=== PATIENT | female | born 1995 | race Caucasian/White ===

== ENCOUNTER 2017-12-11 10:25 | Emergency (ER) | payer SELFPAY, OTHER | END 2017-12-11 12:12 | disposition home or self-care (01) | LOC: ERS 10:25 | DX: O03.9 Complete or unspecified spontaneous abortion without complication (principal); F32.9 Major depressive disorder, single episode, unspecified; Z87.891 Personal history of nicotine dependence | CPT/HCPCS: 36415; 84702; 99284 ==

== ENCOUNTER 2018-02-07 09:26 | Emergency (ER) | payer OTHER ==
[2018-02-07 10:20] LABS: #Basophils 0.1 thou/uL (0.0-0.2); #Eosinphils 0.3 thou/uL (0.0-0.7); #Lymphocytes 2.2 thou/uL (1.20-3.40); #Monocytes 0.4 thou/uL (0.11-0.59); #Neutrophils 3.6 thou/uL (1.40-6.50); %Basophils 1.2 % (0.0-1.0); %Eosinophils 4.5 % (0.0-10.0); %Lymphocytes 33.8 % (21.0-51.0); %Monocytes 5.7 % (0.0-10.0); %Neutrophils 54.8 % (42.0-75.0); Hemoglobin 14.4 g/dL (12.0-16.0); Mean Corpuscular HGB CONC 33.7 g/dL (32.0-36.0); Mean Corpuscular Hemoglobin 30.3 pg (27.0-31.0); Mean Platelet Volume 8.6 fL (7.4-10.4); Platelet Count 202 thou/uL (130-400); RBC Distribution Width 11.8 % (11.5-14.5); Red Blood Cell (RBC) Count 4.74 mill/uL (4.20-5.40); White Blood Cell (WBC) Count 6.5 thou/uL (4.8-10.8)
[2018-02-07 10:23] LABS: BHCG - Serum POSITIVE (NEGATIVE); Pregs Control Background? CLEAR/WHITE (CLR/WHITE); Pregs Control Bar Appear? YES (CONTROL BAR)
[2018-02-07 10:47] LABS: Bilirubin Negative (Negative); Blood, Urine Negative (Negative); Clarity CLEAR (Clear); Glucose, Urine (Dipstick) Negative (Negative); Leukocyte Negative (Negative); Nitrite Negative (Negative); Protein, Urine (Dipstick) Negative (Neg-Trace); Specific Gravity, Urine 1.019 (1.002-1.036); Urobilinogen 0.2 mg/dL (0.2-1.0); pH, Urine 5.5 (5.0-9.0)
--- NOTE | 2018-02-07 11:20 | ULT ---
ULTRASOUND PELVIC TRANSVAGINAL: Date: 02/07/18 HISTORY: Pelvic pain. COMPARISON: None. FINDINGS: Uterus measures 7.9 x 4.1 x 3.9 cm. Right ovary measures 2.6 x 3.5 x 2.3 cm. Left ovary measures 2.3 x 1.4 x 1.8 cm. Adequate flow to both ovaries. There is small volume free fluid. IMPRESSION: 1. Small volume free fluid in the pelvis. 2. No intrauterine gestational sac is seen. If patient is truly , this would be a of unknown location. Follow-up HCG trend and ultrasound recommended. POS: [facility]
[2018-02-08 22:48] LABS: Chlamydia by PCR Not Detected (NotDetected); GC by PCR Not Detected (NotDetected)
== END 2018-02-07 11:35 | disposition home or self-care (01) ==
LOC: ERS 09:26
DX: O20.0 Threatened abortion (principal); O99.341 Other mental disorders complicating pregnancy, first trimester; F32.9 Major depressive disorder, single episode, unspecified; O99.331 Smoking (tobacco) complicating pregnancy, first trimester; F17.210 Nicotine dependence, cigarettes, uncomplicated; Z71.6 Tobacco abuse counseling; Z3A.01 Less than 8 weeks gestation of pregnancy
CPT/HCPCS: 36415; 76856; 81003; 84702; 84703; 85025; 86900; 86901; 87480; 87491; 87510; 87591; 87660; 99406

== ENCOUNTER 2018-02-09 12:59 | Emergency (ER) | payer OTHER ==
--- NOTE | 2018-02-09 14:38 | ULT ---
PELVIC ULTRASOUND: History: Positive HCG. Comparison: 02-07-18. No IUP seen at that time. Technique: Transabdominal and endovaginal imaging of the pelvis is performed. Ovaries are integrated with grayscale, color flow, doppler imaging and spectral waveform analysis. FINDINGS: Uterus is identified, measuring 7.8 x 3.5 x 4.3 cm. Endometrium measures 1.1 cm. No evidence of a ges tational sac, yolk sac, or pole. Left ovary has a normal echotexture measuring 1.9 x 1.5 x 2.2 cm. In the right ovary, there is a 1.9 x 1.3 x 1.1 cm hypoechoic focus which may represent a complex cyst /corpus luteal cyst. Overall, the right ovary measures 2.1 x 2.6 x 3.1 cm. There is free fluid in the cul-de-sac. OVARIAN DOPPLER: Vascular flow to the left and right ovary. IMPRESSION: 1. No sonographic evidence of intrauterine gestation. 2. Hypoechoic focus in the right ovary likely representing a complex cyst versus corpus luteal cyst. 3. Follow up ultrasound and serial HCGs are recommended. POS: [facility]
== END 2018-02-09 14:39 | disposition home or self-care (01) ==
LOC: ERS 12:59
DX: N93.9 Abnormal uterine and vaginal bleeding, unspecified (principal); F32.9 Major depressive disorder, single episode, unspecified; F17.210 Nicotine dependence, cigarettes, uncomplicated
CPT/HCPCS: 36415; 76856; 84702

== ENCOUNTER 2018-02-12 10:14 | Emergency (ER) | payer OTHER ==
--- NOTE | 2018-02-12 16:24 | ULT ---
PELVIC ULTRASOUND INCLUDING TRANSABDOMINAL AND TRANSVAGINAL AND VASCULAR DUPLEX WITH COLOR AND SPECTR AL DOPPLER IMAGIN02/12/18 The uterus measures 6.8 x 3.9 x 4.2 cm. The right ovary measures 2.1 x 2.7 x 3.0 cm. Left ovary measu res 1.6 x 2.0 x 3.2 cm. There is a small gestational sac noted within the uterus which by size crite apollo approximates 5 weeks, 4 days. No evidence of a pole or heart rate. Vascular duplex demonstrates blood flow to both ovaries. No evidence of ovarian torsion. There appear s to be some slight asymmetry in the myometrium on the right side on transverse images. This may just be related to some slight obliquity to this image. The possibility of a small fibroid is a possibili ty as well. IMPRESSION: Small gestational sac within the uterus without evidence of pole or viability. Somewhat a symmetric right sided myometrium on transverse imaging, of uncertain etiology or significance. Follow up quantitative serum HCGs is recommended to evaluate for continued status of this presumed early pre gnancy. POS: [facility]
== END 2018-02-12 14:49 | disposition home or self-care (01) ==
LOC: ERS 10:14
DX: O02.81 Inappropriate change in quantitative human chorionic gonadotropin (hCG) in early pregnancy (principal); J45.909 Unspecified asthma, uncomplicated; F32.9 Major depressive disorder, single episode, unspecified; F17.210 Nicotine dependence, cigarettes, uncomplicated; Z79.899 Other long term (current) drug therapy
CPT/HCPCS: 36415; 76856; 84702

== ENCOUNTER 2018-07-04 10:42 | Outpatient (CLI) | payer OTHER ==
--- NOTE | 2018-07-04 13:01 | ULT ---
RIGHT UPPER QUADRANT ULTRASOUND: History: Abnormal liver function enzymes. FINDINGS: There is no focal hepatic lesion. The gallbladder is unremarkable. Monge sign reported as negative. Common duct is normal in diameter at 4 mm. No ascites. IMPRESSION: No acute gallbladder pathology evident. POS: [facility]
== END 2018-07-04 10:43 | disposition home or self-care (01) ==
LOC: SCSULT 10:42
PROVIDERS: ATTEND Obstetrics & Gynecology
DX: R94.5 Abnormal results of liver function studies (principal)
CPT/HCPCS: 76705; 80053; 85025; 86709; 86803; 87340

== ENCOUNTER 2018-09-14 10:00 | Inpatient (IN) | payer OTHER ==
--- NOTE | 2018-09-13 15:07 | PDOC.LDHP ---
Labor and Delivery H&P Chief complaint: scheduled section HPI: 22 yo @ 36w1d by 7 week CRL who presents for scheduled RCD due to h/o CD x1 (32 weeks for pre-eclampsia), cholestasis of , IUGR with elevated S/ D dopplers. S/P BMTZ course (initial and repeat course). Pt has been followed by MFM due to risk factors mentioned. Current gestational age (weeks): 36 Due date: 10/11/18 Dating criteria: first trimester ultrasound Grav: 3 Para: 1 OB History Details: CD @ 32 weeks for severe pre-eclampsia SAB x1 Current complications: IUGR, other (ICP Abnormal umbilical dopplers) Abnormal US findings: No Past Medical History: H/O tobacco use in early Asthma with tobacco use only Current medications: pre- vitamins, other (Ursodiol) Previous surgical history: low tranverse CS, other (Tonsillectomy) Allergies/Adverse Reactions: Allergies Allergy/AdvReac Type Severity Reaction Status Date / Time Sulfa (Sulfonamide Allergy Rash Verified 09/14/18 11:30 Antibiotics) Social history: none - Physical Exam Vital signs reviewed and normal: yes General: NAD Heart: RRR Lungs: nonlabored breathing Abdomen: gravid Extremeties: no edema FHT: category 2 (120s, mod asael, +accels, rare variable decel) [place] contractions every: no ctx - OB Labs Blood type: O RH: positive Antibody Screen: negative HIV: negative RPR: negative HEPSAg: negative 1 hour GCT: positive 3 hour GTT: normal GBS: negative Urine drug screen: not done Rubella: non-immune Additional Labs: Anti-phospholipid antibody work up negative SS wnl - Assessment 36w1d IUP ICP IUGR with elevated S/D ratio H/O LTCS x1, Declines TOLAC Rubella non-immune - Plan Plan: to OR for section, informed consent obtained -: Reviewed R/B/A/I for TOLAC vs RCD and pt prefers RCD. TO OR as scheduled. Neonatology aware of delivery, s/p BMTZ course. MMR PP.
[2018-09-14] MEDS ORDERED: Promethazine HCl 25 MG/ML VIAL IM PRN ×2 (11:04→12:52)
[2018-09-14] MEDS ORDERED: CEFAZOLIN/Water 2 GM/20 ML SYRINGE SLOW IVP SCH (11:04)
[2018-09-14] MEDS ORDERED: Bicitra 30 ML UDCUP PO SCH (11:04)
[2018-09-14] MEDS ORDERED: Acetaminophen 500 MG TAB PO PRN (11:04)
[2018-09-14] MEDS ORDERED: Ondansetron HCl/PF 4 MG/2 ML Vial IVP PRN ×3 (11:04→12:52)
[2018-09-14] MEDS ORDERED: Butorphanol Tartrate 1 MG/ML VIAL SLOW IVP PRN (11:04)
[2018-09-14] MEDS ORDERED: Bicitra 30 ML UDCUP ONE (11:25)
[2018-09-14] MEDS ORDERED: CEFAZOLIN/Water 2 GM/20 ML SYRINGE ONE (11:25)
[2018-09-14] MEDS: Lactated Ringer's 1,000 ML IV SCH ×2 (11:30→17:48)
[2018-09-14 11:31] VITALS: BMI 37.5
[2018-09-14 11:39] LABS: Hemoglobin 11.4 g/dL (12.0-16.0); Mean Corpuscular HGB CONC 33.2 g/dL (32.0-36.0); Mean Corpuscular Hemoglobin 27.3 pg (27.0-31.0); Mean Corpuscular Volume 82.3 fL (78.0-98.0); Mean Platelet Volume 10.8 fL (7.4-10.4); Platelet Count 196 thou/uL (130-400); Red Blood Cell (RBC) Count 4.16 mill/uL (4.20-5.40); White Blood Cell (WBC) Count 12.1 thou/uL (4.8-10.8)
[2018-09-14 12:04] LABS: ALT (SGPT) 321 U/L (8-55); AST (SGOT) 100 U/L (5-34); Albumin 3.5 g/dL (3.5-5.0); Alkaline Phosphatase 159 U/L (40-150); Anion Gap 14 mmol/L (10-20); BUN (Urea Nitrogen) 10 mg/dL (7.0-18.7); Bilirubin, Total 0.8 mg/dL (0.2-1.2); Calc. Creatinine Clearance 170 mL/min (70-130); Calcium 9.1 mg/dL (7.8-10.44); Carbon Dioxide 21 mmol/L (22-29); Chloride 105 mmol/L (98-107); Estimated GFR-MDRD Greater than 90; Globulin 2.9 g/dL (2.4-3.5); Glucose 96 mg/dL (70-105); Potassium 4.5 mmol/L (3.5-5.1); Protein, Total 6.4 g/dL (6.0-8.3); Sodium 135 mmol/L (136-145)
[2018-09-14] MEDS ORDERED: Lidocaine 1% PF 5 ML VIAL ONE (12:13)
[2018-09-14] MEDS ORDERED: PHENYLEPHRINE-NS 100 MCG/ML 10 ML SYRINGE ONE ×2 (12:13→14:33)
[2018-09-14] MEDS ORDERED: Oxytocin 10 UNITS/ML VIAL ONE ×2 (12:13→12:47)
[2018-09-14] MEDS ORDERED: Morphine PF 1 MG/ML SYR ONE (12:13)
[2018-09-14] MEDS ORDERED: Ondansetron HCl/PF 4 MG/2 ML Vial ONE ×2 (12:13→14:33)
[2018-09-14] MEDS ORDERED: Bupivacaine 0.75% W/DEXTROSE 8.25% 2 ML AMP ONE (12:13)
[2018-09-14] MEDS ORDERED: Lactated Ringer's 1,000 ML IV SCH (12:15)
[2018-09-14 12:23] LABS: HBSAg Index 0.22 S/CO (0-0.99); HIV (1/2) Antibody/Antigen Non-Reactive (NonReactive); HIV 1/2 INDEX 0.12 S/CO (<1.00); Hep B Surf Ag Non-Reactive S/CO (NonReactive); Syphilis Antibody Nonreactive (Nonreactive); Syphilis Antibody Index 0.02 S/CO (<1.00 Non-Reactive)
[2018-09-14] MEDS ORDERED: Ketorolac Tromethamine 30 MG/ML VIAL ONE ×2 (12:50→14:33)
[2018-09-14] MEDS ORDERED: Meperidine HCl/PF 25 MG/ML VIAL SLOW IVP PRN (12:52)
[2018-09-14] MEDS ORDERED: Naloxone HCl 0.4 mg/ml Vial IV PRN (12:52)
[2018-09-14] MEDS ORDERED: diphenhydrAMINE 50 MG/ML VIAL IVP PRN (12:52)
[2018-09-14] MEDS ORDERED: Eucerin (Mineral Oil/Petrolatum,White) 30 gm Jar TOP PRN (12:52)
[2018-09-14] MEDS ORDERED: L&D-Morphine 4 MG/ML VIAL SLOW IVP PRN (12:52)
[2018-09-14] MEDS ORDERED: Promethazine HCl 25 MG SUPP PR PRN (12:52)
[2018-09-14] MEDS ORDERED: Ketorolac Tromethamine 30 MG/ML VIAL IVP PRN (12:52)
[2018-09-14] MEDS ORDERED: Naloxone HCl 0.4 mg/ml Vial IVP PRN ×2 (12:52)
[2018-09-14] MEDS ORDERED: HYDROmorphone 2 MG/ML VIAL SLOW IVP PRN (12:52)
[2018-09-14] MEDS ORDERED: Fentanyl 100 MCG/2 ML VIAL ONE (12:54)
[2018-09-14 12:57] LABS: Actual Bicarbonate (HCO3a) 28.4 mEq/L (22-28); Base Excess (BEa) 1.3 mEq/L (-2.0 to +3.0)
[2018-09-14] MEDS ORDERED: Communication Order-Pharmacy FS SCH (13:00)
--- NOTE | 2018-09-14 13:28 | PDOC.OPDEL ---
OB Operative/Delivery Note Delivery Dr/Surgeon: Corinne Niño DO Pre-Delivery Diagnosis: scheduled section (36 week IUP, FGR, Abnormal umbilical artery dopplers, Intrahepatic Cholestasis of ) Weeks gestation: 36 Anesthesia: spinal - Findings A Sex: female - 1 min: 8 - 5 min: 9 - Additional Findings/Plan Placenta delivered: spontaneous findings: low transverse hysterotomy without extension, normal uterus, normal tubes, normal ovaries Estimated blood loss: QBL 245 cc Compilations/Other Findings: Cephalic in presentation, FGR fetus. Clear amniotic fluid Normal appearing placenta and umbilical cord Post delivery plan: routine recovery
[2018-09-14 14:41] LABS: Amphetamine Not Detected (NotDetected); Barbiturates Screen Not Detected (NotDetected); Benzodiazepine Screen Not Detected (NotDetected); Cocaine Metabolite Screen Not Detected (NotDetected); Medtox Control Line Valid? VALID (VALID); Medtox Reader # READER 1; Methadone Not Detected (NotDetected); Methamphetamine Not Detected (NotDetected); Opiate Screen Detected (NotDetected); Oxycodone Screen Not Detected (NotDetected); Phencyclidine (PCP) Not Detected (NotDetected); THC/Cannabinoid Screen Not Detected (NotDetected); Tricyclic Screen Not Detected (NotDetected)
[2018-09-14] MEDS ORDERED: NS / Oxytocin 40 units/1000ml 1,000 ML IV SCH (16:34)
[2018-09-14] MEDS ORDERED: Misoprostol 200 MCG TAB PR PRN (16:34)
[2018-09-14] MEDS ORDERED: Methylergonovine 0.2 MG/ML VIAL IM PRN (16:34)
[2018-09-14] MEDS ORDERED: Lanolin Ointment 7 GM TUBE TOP PRN (16:34)
[2018-09-14] MEDS ORDERED: Bisacodyl 10 MG SUPP PR PRN (16:34)
[2018-09-14] MEDS ORDERED: Simethicone Chewable 80 MG TAB PO PRN (16:34)
[2018-09-14] MEDS ORDERED: Measles/Mumps/Rubella 10 MCG/0.5 ML VIAL SC ONE (16:34)
--- NOTE | 2018-09-14 23:51 | OP ---
PREOPERATIVE DIAGNOSES: 1. A 36-week 1-day intrauterine . 2. Intrahepatic cholestasis of . 3. growth restriction with abnormal umbilical Dopplers. 4. History of a delivery x1, declines trial of labor. POSTOPERATIVE DIAGNOSES: 1. A 36-week 1-day intrauterine . 2. Intrahepatic cholestasis of . 3. growth restriction with abnormal umbilical Dopplers. 4. History of a delivery x1, declines trial of labor. PROCEDURE: Repeat low transverse delivery via Pfannenstiel skin incision. SURGEON: Corinne Niño D.O. FIELD EXAMINER: Barrett Melton M.D. COMPLICATIONS: None. QBL: 245 mL ANESTHESIA: General. FINDINGS: A viable female in cephalic presentation weighing 4 pounds an 13 ounces with Apgars 8 and 9, clear amniotic fluid. Normal appearing placenta. INDICATIONS FOR THE PROCEDURE: Ms. Hyde is a 22-year-old G3, P1 at 36 weeks and 1 day who presented for repeat . Antepartum course complicated by intrahepatic cholestasis of , growth restriction with abnormal Dopplers and a history of a low transverse delivery x1. Patient was evaluated by Maternal Medicine, who recommended delivery at approximately 36 weeks due to the growth restriction with abnormal Dopplers and cholestasis of . She received a betamethasone course for lung maturity and the patient was counseled regarding mode of delivery and desired a repeat delivery, declining trial of labor. PROCEDURE IN DETAIL: The patient was brought to the operating room. She was placed under spinal anesthesia. The patient was then placed in supine position with a leftward tilt. A Small catheter was placed. She was given Ancef for surgical prophylaxis. She was prepped and draped in a sterile fashion. An official timeout was performed. Anesthesia was assessed and proved to be adequate. Pfannenstiel skin incision was made through the previous scar tissue. This was carried down to the underlying fascial layer. The fascia was then incised in the midline and was extended bilaterally using Brennan scissors. The superior aspect of the fascial incision was grasped using a Yonatan clamp, tented upward, dissected free from the underlying rectus abdominis muscles and the same was performed to the inferior aspect of the fascial incision. The rectus abdominis muscles were bluntly. The peritoneum was entered bluntly and this was extended using blunt dissection. Danny O retractor was placed into the abdomen. A low transverse hysterotomy was made using the scalpel, this was extended using blunt dissection. The amniotic membranes were ruptured and clear amniotic fluid. There was a lower uterine segment that was noted. was delivered in cephalic presentation without difficulty. Infant's cord was clamped and cut. was handed to the waiting Neonatology team. Cord sample, cord gases, and cord blood were obtained. The placenta was delivered spontaneously intact. The uterus was cleared of all clot and debris. Hysterotomy was closed in a running locking fashion creating hemostasis. The ovaries and fallopian tubes were evaluated normal in appearance. The pelvis was irrigated and cleared of all clot and debris. There was slight oozing at the left apex of the hysterotomy, which was then corrected using a [id number] suture. The Danny O retractor was removed from the abdomen. The peritoneum was closed in a running fashion. The rectus abdominis muscles were evaluated hemostatic with use of the Bovie. The fascia was closed in a running fashion using 0 PDS. Subcutaneous layer was copiously irrigated, hemostatic using the Bovie. The subcutaneous layer was closed using 3-0 Vicryl. The skin was closed using 4-0 Monocryl and Dermabond. Today, patient tolerated the procedure well. There were no complications. The mother was transferred to the routine recovery and infant will be transferred to NICU due to slight respiratory distress after delivery due to prematurity. All counts are correct x3. MTDD
[2018-09-15] MEDS ORDERED: Butorphanol Tartrate 1 MG/ML VIAL SLOW IVP PRN (01:00)
[2018-09-15] MEDS: Docusate Calcium (SURFAK) 240 MG CAP PO SCH ×3 (01:59→22:09)
[2018-09-15 05:13] LABS: #Basophils 0.1 thou/uL (0.0-0.2); #Eosinphils 0.1 thou/uL (0.0-0.7); #Lymphocytes 2.5 thou/uL (1.20-3.40); #Monocytes 0.7 thou/uL (0.11-0.59); #Neutrophils 5.7 thou/uL (1.40-6.50); %Basophils 0.8 % (0.0-1.0); %Eosinophils 0.9 % (0.0-10.0); %Neutrophils 63.3 % (42.0-75.0); Hemoglobin 10.7 g/dL (12.0-16.0); Mean Corpuscular Hemoglobin 27.5 pg (27.0-31.0); Mean Corpuscular Volume 83.4 fL (78.0-98.0); Mean Platelet Volume 10.4 fL (7.4-10.4); Platelet Count 175 thou/uL (130-400); RBC Distribution Width 12.2 % (11.5-14.5); Red Blood Cell (RBC) Count 3.91 mill/uL (4.20-5.40); White Blood Cell (WBC) Count 9.1 thou/uL (4.8-10.8)
[2018-09-15] MEDS: Lactated Ringer's 1,000 ML IV SCH ×3 (07:00→22:09)
--- NOTE | 2018-09-15 08:23 | PDOC.PP ---
Post Progress Note Post Day #: 1 Subjective: Overall doing well. Mild pain. Minimal lochia. Has not voided or passed flatus. No n/v, f/c. in NICU for RDS due to prematurity. Formula feeding. PO intake tolerated: yes Flatus: no Ambulation: yes Vital Signs (12 hours) Temp Pulse Resp BP Pulse Ox 09/15/18 04:45 97.8 F 80 20 118/63 09/15/18 02:07 98.0 F 90 20 118/69 09/14/18 21:07 98.0 F 85 18 110/71 99 Weight Weight 186 lb - Physical Examination General: NAD Cardiovascular: RRR Respiratory: non-labored breathing Abdominal: no distention, appropriately TTP Fundus firm & at: below umbilicus Extremities: negative homans (B) Deviation from normal: Dressing c/d/i Neurological: no gross focal deficits Psychiatric: A&Ox3 Result Diagrams: 09/15/18 04:45 09/14/18 11:11 Additional Labs: Post Labs Blood Type A POSITIVE 09/14/18 11:11 Hep Bs Antigen Non-Reactive S/CO (NonReactive) 09/14/18 11:11 (1) delivery delivered Code(s): O82 - ENCOUNTER FOR DELIVERY WITHOUT INDICATION Status: Acute (2) Anemia Code(s): D64.9 - ANEMIA, UNSPECIFIED Status: Acute Qualifiers: Other causes of anemia: acute posthemorrhagic (3) 36 weeks gestation of Code(s): Z3A.36 - 36 WEEKS GESTATION OF Status: Resolved (4) FGR (foetal growth retardation) Status: Resolved (5) Cholestasis during Code(s): O26.619 - LIVER AND BILIARY TRACT DISORD IN , UNSP TRIMESTER; K83.1 - OBSTRUCTION OF BILE DUCT Status: Resolved - Assessment/Plan PPD1 VSSAF Continue post op/ care. Repeat CMP tomorrow. Avoid meds which worsen transaminitis.
[2018-09-15] MEDS: Prenatal Vitamin 1 TAB PO SCH (10:26)
[2018-09-15] MEDS: Ibuprofen 800 MG TAB PO SCH ×2 (13:57→22:09)
[2018-09-15] MEDS: oxyCODONE 5 MG TAB PO PRN ×2 (17:06→23:49)
[2018-09-16] MEDS: Lactated Ringer's 1,000 ML IV SCH ×3 (05:28→16:46)
[2018-09-16] MEDS: Ibuprofen 800 MG TAB PO SCH ×3 (05:28→23:16)
[2018-09-16 05:51] LABS: ALT (SGPT) 291 U/L (8-55); AST (SGOT) 99 U/L (5-34); Alkaline Phosphatase 132 U/L (40-150); Anion Gap 13 mmol/L (10-20); BUN (Urea Nitrogen) 12 mg/dL (7.0-18.7); Bilirubin, Total 0.5 mg/dL (0.2-1.2); Calc. Creatinine Clearance 175 mL/min (70-130); Carbon Dioxide 23 mmol/L (22-29); Chloride 107 mmol/L (98-107); Estimated GFR-MDRD Greater than 90; Globulin 2.5 g/dL (2.4-3.5); Glucose 102 mg/dL (70-105); Potassium 4.1 mmol/L (3.5-5.1); Protein, Total 5.5 g/dL (6.0-8.3); Sodium 139 mmol/L (136-145)
[2018-09-16] MEDS: Prenatal Vitamin 1 TAB PO SCH (07:57)
[2018-09-16] MEDS: Docusate Calcium (SURFAK) 240 MG CAP PO SCH ×2 (07:57→20:26)
--- NOTE | 2018-09-16 08:20 | PDOC.PP ---
Post Progress Note Post Day #: 2 Subjective: Moderate pain. Improved with PO meds. Minimal lochia. Formula feeding. still in NICU. PO intake tolerated: yes Flatus: yes Ambulation: yes Vital Signs (12 hours) Temp Pulse Resp BP Pulse Ox 09/16/18 08:01 97 09/16/18 07:53 98.2 F 95 18 111/61 97 09/15/18 20:50 97.5 F L 84 18 121/73 96 Weight Weight 186 lb - Physical Examination General: NAD Cardiovascular: RRR Respiratory: non-labored breathing Abdominal: no distention, appropriately TTP Fundus firm & at: below umbilicus Extremities: negative homans (B) Skin: CS incision dry & intact, no rash Neurological: no gross focal deficits Psychiatric: A&Ox3, normal affect Result Diagrams: 09/15/18 04:45 09/16/18 05:20 Additional Labs: Post Labs Blood Type A POSITIVE 09/14/18 11:11 Hep Bs Antigen Non-Reactive S/CO (NonReactive) 09/14/18 11:11 (1) delivery delivered Code(s): O82 - ENCOUNTER FOR DELIVERY WITHOUT INDICATION Status: Acute (2) Anemia Code(s): D64.9 - ANEMIA, UNSPECIFIED Status: Acute Qualifiers: Other causes of anemia: acute posthemorrhagic (3) 36 weeks gestation of Code(s): Z3A.36 - 36 WEEKS GESTATION OF Status: Resolved (4) FGR (foetal growth retardation) Status: Resolved (5) Cholestasis during Code(s): O26.619 - LIVER AND BILIARY TRACT DISORD IN , UNSP TRIMESTER; K83.1 - OBSTRUCTION OF BILE DUCT Status: Resolved - Assessment/Plan PPD2 VSSAF Continue post care at still in NICU. D/C 1-2 days. PP rx sent to pharmacy. LFTs improved today, will repeat at 2 week PP incision check. Instructed to avoid Tylenol.
[2018-09-16] MEDS: oxyCODONE 5 MG TAB PO PRN ×3 (08:22→20:47)
[2018-09-17] MEDS: oxyCODONE 5 MG TAB PO PRN ×3 (06:25→17:58)
[2018-09-17] MEDS: Ibuprofen 800 MG TAB PO SCH ×2 (06:25→17:48)
[2018-09-17] MEDS: Lactated Ringer's 1,000 ML IV SCH ×2 (07:23→10:38)
[2018-09-17] MEDS: Docusate Calcium (SURFAK) 240 MG CAP PO SCH (08:49)
[2018-09-17] MEDS: Prenatal Vitamin 1 TAB PO SCH (08:49)
--- NOTE | 2018-09-17 12:05 | PDOC.EVN ---
Event Note - Event Note Event Note: Asked by Dr Murphy to write for ultram RX until patient can get her other pain med. I wrote a RX for Ultran 50, Disp#10
[2018-09-17 17:12] VITALS: BP 103/61; TEMP 97.9
== END 2018-09-17 19:02 | disposition home or self-care (01) | DRG 786 ==
LOC: L&D-LIB 10:00 → 3SE 16:42
PROVIDERS: ADMIT Obstetrics & Gynecology; ATTEND Obstetrics & Gynecology
PROC: 10D00Z1 Extraction of Products of Conception, Low, Open Approach (ICD-10-PCS; principal; 2018-09-14)
DX: O26.62 Liver and biliary tract disorders in childbirth (principal); K83.1 Obstruction of bile duct; D64.9 Anemia, unspecified; Z3A.36 36 weeks gestation of pregnancy; Z37.0 Single live birth
CPT/HCPCS: 36415; 51702; 80053; 80306; 82805; 85025; 85027; 86780; 86850; 86900; 86901; 87340; 87389; 88307; 90707; J1885; J2001; J2274; J2405; J2590; J3010; J3490

== ENCOUNTER 2020-03-26 05:56 | Inpatient (IN) | payer OTHER ==
--- NOTE | 2020-03-24 16:49 | PDOC.LDHP ---
Labor and Delivery H&P Chief complaint: scheduled section HPI: 24 y/o WF A1 at 38-39 weeks -edc 04/06- with complicated obstetrical history. Prior severe preeclampsoa delivery at 32 weeks with first in 2013. She then had SAB and third was complicated by cholestasis of with IUGR and repeat c/s at 36 weeks. She has asthma which has remained stable on Flovent(180mcg) puff bid. course has also been complicated by use of THC but recent UDS on02/23 was negative. Fortunately, this has been less complicated with her blood pressures remaining normotensive and frequent hepatic enzyme testing along with screening bile acid levels have remained normal.She has been on 81 mg asa/d prophylaxis since 12 weeks. Current gestational age (weeks): 38 Due date: 04/06/20 Dating criteria: last menstrual period Grav: 4 Para: 2 Current complications: other (SEE HPI) Abnormal US findings: No Past Medical History: ASTHMA. THC use Current medications: pre-gregory vitamins, other (asa 81 mg/d. Flovent puff BID) Previous surgical history: low tranverse CS (x2) Allergies/Adverse Reactions: Allergies Allergy/AdvReac Type Severity Reaction Status Date / Time Sulfa (Sulfonamide Allergy Rash Verified 02/17/20 06:30 Antibiotics) Social history: drug use (thc with recent uds screens negative.) - Physical Exam General: NAD Heart: RRR Lungs: CTAB Abdomen: NTTP Extremeties: no edema FHT: category 1 - OB Labs Blood type: A RH: positive Antibody Screen: negative HIV: negative RPR: negative HEPSAg: negative 1 hour GCT: negative GBS: negative Urine drug screen: negative Rubella: immune - Assessment L&D Assessment: scheduled repeat section - Plan Plan: admit to L&D, to OR for section (Proceed with repeat section at 38 1/2 weeks. High risk due to prior histories.), informed consent obtained, anesthesia consult for pain management
[2020-03-26] MEDS ORDERED: Acetaminophen 500 MG TAB PO PRN (06:08)
[2020-03-26] MEDS ORDERED: CEFAZOLIN 2 GM in Premix Bag 1 BAG IVPB SCH (06:08)
[2020-03-26] MEDS ORDERED: Bicitra 30 ML UDCUP PO SCH (06:08)
[2020-03-26] MEDS ORDERED: Ondansetron PF 4 MG/2 ML Vial IVP PRN ×2 (06:08→08:33)
[2020-03-26] MEDS ORDERED: Butorphanol Tartrate 1 MG/ML VIAL SLOW IVP PRN (06:08)
[2020-03-26] MEDS ORDERED: hydrALAZINE 20 MG/ML VIAL SLOW IVP PRN ×2 (06:08→08:32)
[2020-03-26] MEDS ORDERED: Promethazine HCl 25 MG/ML VIAL IM PRN ×2 (06:08→08:33)
[2020-03-26] MEDS: Lactated Ringer's 1,000 ML IV SCH ×2 (06:22→10:15)
[2020-03-26 06:32] LABS: Hemoglobin 10.5 g/dL (12.0-16.0); Mean Corpuscular HGB CONC 32.3 g/dL (32.0-36.0); Mean Corpuscular Hemoglobin 26.4 pg (27.0-31.0); Mean Corpuscular Volume 81.5 fL (78.0-98.0); Mean Platelet Volume 11.9 fL (7.4-10.4); Platelet Count 163 thou/uL (130-400); RBC Distribution Width 13.1 % (11.5-14.5); Red Blood Cell (RBC) Count 3.99 mill/uL (4.20-5.40); White Blood Cell (WBC) Count 8.5 thou/uL (4.8-10.8)
[2020-03-26] MEDS ORDERED: Oxytocin 10 UNITS/ML VIAL ONE (07:07)
[2020-03-26] MEDS ORDERED: Fentanyl 100 MCG/2 ML VIAL ONE (07:07)
[2020-03-26] MEDS ORDERED: Ketorolac Tromethamine 30 MG/ML VIAL ONE (07:07)
[2020-03-26] MEDS ORDERED: PHENYLEPHRINE-NS 100 MCG/ML 10 ML SYRINGE ONE (07:07)
[2020-03-26] MEDS ORDERED: Dexamethasone 4 mg/ml Vial ONE (07:07)
[2020-03-26] MEDS ORDERED: MORPHINE 5 MG/10 ML PF VIAL ONE (07:07)
[2020-03-26] MEDS ORDERED: EPHEDRINE 25 MG/5 ML SYRINGE ONE (07:07)
[2020-03-26] MEDS ORDERED: Ondansetron PF 4 MG/2 ML Vial ONE (07:08)
[2020-03-26 07:12] LABS: HBSAg Index 0.25 S/CO (0-0.99); Hep B Surf Ag Non-Reactive S/CO (NonReactive); Syphilis Antibody Nonreactive (Nonreactive); Syphilis Antibody Index 0.02 S/CO (<1.00 Non-Reactive)
--- NOTE | 2020-03-26 07:32 | PDOC.EVN ---
Event Note - Event Note Event Note: Blood pressures are 150-160/80's. No PIH symptoms. Will check UP and CMp. Platelets were 163k. Observe pressures post delivery...Treat as indicated
[2020-03-26 07:55] LABS: ALT (SGPT) 49 U/L (8-55); AST (SGOT) 33 U/L (5-34); Albumin 3.1 g/dL (3.5-5.0); Alkaline Phosphatase 203 U/L (40-110); Anion Gap 13 mmol/L (10-20); BUN (Urea Nitrogen) 10 mg/dL (7.0-18.7); Bilirubin, Total 0.3 mg/dL (0.2-1.2); Calc. Creatinine Clearance 0 mL/min (70-130); Calcium 8.4 mg/dL (7.8-10.44); Carbon Dioxide 22 mmol/L (22-29); Chloride 107 mmol/L (98-107); Estimated GFR-MDRD Greater than 90; Globulin 2.7 g/dL (2.4-3.5); Glucose 75 mg/dL (70-105); Potassium 4.4 mmol/L (3.5-5.1); Protein, Total 5.8 g/dL (6.0-8.3); Sodium 138 mmol/L (136-145)
--- NOTE | 2020-03-26 08:31 | PDOC.OPDEL ---
OB Operative/Delivery Note Delivery Dr/Surgeon: Niurka Assist: Maricruz Pre-Delivery Diagnosis: scheduled section Weeks gestation: 38 Anesthesia: local - Findings A Sex: male Weight: 6 lb 10 oz - 1 min: 8 - 5 min: 9 - Additional Findings/Plan Placenta delivered: manual removal findings: low transverse hysterotomy without extension Estimated blood loss: 425ml Post delivery plan: routine recovery (Will observe blood pressures due to initial elevated SBP. Labs normal.)
[2020-03-26] MEDS ORDERED: Adacel (T-DAP) 0.5 ML SYRINGE IM ONE (08:32)
[2020-03-26] MEDS ORDERED: Bisacodyl 10 MG SUPP PR PRN (08:32)
[2020-03-26] MEDS ORDERED: Acetaminophen 325 MG TAB PO PRN (08:32)
[2020-03-26] MEDS ORDERED: diphenhydrAMINE 25 MG CAP PO PRN (08:32)
[2020-03-26] MEDS ORDERED: HYDROcodone/Acetaminophen 5/325 mg Tablet PO PRN (08:32)
[2020-03-26] MEDS ORDERED: Simethicone Chewable 80 MG TAB PO PRN (08:32)
[2020-03-26] MEDS ORDERED: Lanolin Ointment 7 GM TUBE TOP PRN (08:32)
[2020-03-26] MEDS ORDERED: Misoprostol 200 MCG TAB PR PRN (08:32)
[2020-03-26] MEDS ORDERED: Promethazine HCl 25 MG SUPP PR PRN (08:33)
[2020-03-26] MEDS ORDERED: Labetalol HCl 100 MG/20 ML VIAL SLOW IVP PRN (08:33)
[2020-03-26] MEDS ORDERED: diphenhydrAMINE 50 MG/ML VIAL IVP PRN (08:33)
[2020-03-26] MEDS ORDERED: Naloxone HCl 0.4 mg/ml Vial IV PRN (08:33)
[2020-03-26] MEDS ORDERED: Naloxone HCl 0.4 mg/ml Vial IVP PRN ×2 (08:33)
[2020-03-26] MEDS ORDERED: Meperidine HCl/PF 25 MG/ML VIAL SLOW IVP PRN (08:33)
[2020-03-26] MEDS ORDERED: HYDROmorphone 2 MG/ML VIAL SLOW IVP PRN (08:33)
[2020-03-26] MEDS ORDERED: L&D-Morphine 4 MG/ML VIAL SLOW IVP PRN (08:33)
[2020-03-26] MEDS ORDERED: Ondansetron HCl/PF 4 MG/2 ML Vial IVP PRN (08:33)
[2020-03-26 08:37] LABS: Amphetamine Not Detected (NotDetected); Cocaine Metabolite Screen Not Detected (NotDetected); Medtox Reader # READER 4; Methamphetamine Not Detected (NotDetected); Opiate Screen Not Detected (NotDetected); Phencyclidine (PCP) Not Detected (NotDetected); THC/Cannabinoid Screen Not Detected (NotDetected)
[2020-03-26 08:38] LABS: Barbiturates Screen Not Detected (NotDetected); Benzodiazepine Screen Not Detected (NotDetected); Medtox Control Line Valid? VALID (VALID); Methadone Not Detected (NotDetected); Oxycodone Screen Not Detected (NotDetected); Tricyclic Screen Not Detected (NotDetected)
[2020-03-26] MEDS ORDERED: Communication Order-Pharmacy FS SCH (08:45)
--- NOTE | 2020-03-26 09:13 | OP ---
DATE OF PROCEDURE: 03/26/2020 PREOPERATIVE DIAGNOSES: 1. A 24-year-old white female G3, P2, at 38-1/2 weeks gestation. 2. Prior section x2. 3. Prior history of severe preeclampsia at 32 weeks. 4. Prior history of cholestasis of , delivery at 36 weeks. 5. Elevated systolic blood pressure on arrival of 160s, treated. POSTOPERATIVE DIAGNOSES: 1. A 24-year-old white female G3, P2, at 38-1/2 weeks gestation. 2. Prior section x2. 3. Prior history of severe preeclampsia at 32 weeks. 4. Prior history of cholestasis of , delivery at 36 weeks. 5. Elevated systolic blood pressure on arrival of 160s, treated. PROCEDURE PERFORMED: Repeat low transverse section without extension. INSTRUMENTATION AND CONTROLS TECHNICIAN SURGEON: Wendy Alcantara PA-C ANESTHESIA: Spinal block. ESTIMATED BLOOD LOSS: 425 mL. COMPLICATIONS: None. COUNTS: Correct x2. ANTIBIOTICS: 2 g Ancef on-call to OR. FINDINGS: 1. Vigorous male , vertex presentation, clear amniotic fluid noted. Apgars were 8 and 9. weight 6 pounds 10 ounces. 2. Normal-appearing uterus, tubes, and ovaries. 3. Clear urine present in Small catheter postprocedure. DISPOSITION: Recovery room, stable, for continue observation of blood pressures and routine recovery. DESCRIPTION OF PROCEDURE: The patient previously received informed consent in regard to surgery. She was taken back to the operating room, where she received a spinal block without complications. She was placed in the supine position, prepped and draped in usual sterile fashion, while Small catheter and PlexiPulses were placed. Once she had been prepped and draped, a Pfannenstiel incision was made through the previous scar site. It was carried down the fascia. Fascia was nicked in the midline. Fascial incision was extended bilaterally with the use of curved Brennan scissors. The rectus muscle bellies and fascia were then dissected sharply and with Bovie cautery superiorly and inferiorly off the rectus muscle. The rectus muscle bellies were divided in the midline. Peritoneal cavity was entered. The peritoneal incision was extended. A bladder blade was placed. Bladder flap was created in usual fashion. A 2 cm hysterotomy incision was made in the lower uterine segment, which was noted to be very thin. This was extended via finger fractionation. The amniotic bag was ruptured with clear fluid and the baby was delivered in the vertex presentation. Mouth and nares of the infant were bulb suctioned on the abdomen. The cord was doubly clamped and cut and the baby was handed to the pediatric team in attendance. Cord blood was obtained and the placenta was manually extracted. The uterus was externalized. Uterus was curetted of any remaining placental fragments with a dry laparotomy sponge. Hysterotomy incision was then closed in running locking fashion with good hemostasis noted. The uterus was placed back in the abdomen. On inspection of the hysterotomy incision, there was some mild bleeding on the right angle. An additional [id number] suture was placed in the right angle of the hysterotomy incision securing hemostasis. The pelvis was then irrigated and suctioned and again hysterotomy incision was noted to be hemostatic. The rectus muscle bellies were inspected, noted to be hemostatic prior to fascial closure. The fascia was closed with 0 PDS suture x2 in a running continuous fashion. Subcutaneous tissue was irrigated, noted to be hemostatic prior to approximation with 3-0 plain gut running suture. The skin was closed with 4-0 Monocryl in a subcuticular stitch fashion with Dermabond. The surgery was terminated. No anesthetic or surgical complications occurred. Job ID: [id number]
[2020-03-26] MEDS: Ferrous Sulfate 325 MG TAB PO SCH ×2 (10:32→21:58)
[2020-03-26] MEDS: Docusate Calcium (SURFAK) 240 MG CAP PO SCH ×2 (10:32→21:57)
[2020-03-26] MEDS: Prenatal Vitamin 1 TAB PO SCH (10:33)
[2020-03-26] MEDS: Ibuprofen 800 MG TAB PO SCH (14:21)
[2020-03-26] MEDS ORDERED: NS / Oxytocin 40 units/1000ml 1,000 ML ONE (16:52)
[2020-03-26] MEDS: Ketorolac Tromethamine 30 MG/ML VIAL IVP PRN (20:29)
[2020-03-26] MEDS: Labetalol 100 MG TAB PO SCH (21:57)
[2020-03-27] MEDS: Ibuprofen 800 MG TAB PO SCH ×4 (05:26→21:27)
[2020-03-27] MEDS: Lactated Ringer's 1,000 ML IV SCH ×3 (05:26→14:27)
[2020-03-27] MEDS: Ketorolac Tromethamine 30 MG/ML VIAL IVP PRN (05:27)
--- NOTE | 2020-03-27 07:27 | PDOC.PP ---
Post Progress Note Post Day #: 1 PO intake tolerated: yes Flatus: yes Ambulation: yes Vital Signs (12 hours) Temp Pulse Resp BP BP Pulse Ox 03/27/20 04:00 97.9 F 87 18 125/73 03/26/20 21:57 76 134/71 03/26/20 20:00 97 03/26/20 19:40 98.6 F 76 18 134/71 97 Result Diagrams: 03/26/20 06:18 03/26/20 06:18 Additional Labs: Post Labs Blood Type A POSITIVE 03/26/20 06:18 Hep Bs Antigen Non-Reactive S/CO (NonReactive) 03/26/20 06:18 - Assessment/Plan Post op day 1 frim repeat c/s 33. Vitals stable. labetolol 100 mg po bid initiated due to recurrent SBP>160..Blood pressure is much improved. Continue routine post op care.
[2020-03-27 07:49] LABS: Hemoglobin 8.4 g/dL (12.0-16.0); Mean Corpuscular HGB CONC 32.6 g/dL (32.0-36.0); Mean Corpuscular Hemoglobin 26.8 pg (27.0-31.0); Mean Corpuscular Volume 82.2 fL (78.0-98.0); Platelet Count 117 thou/uL (130-400); RBC Distribution Width 12.9 % (11.5-14.5); Red Blood Cell (RBC) Count 3.14 mill/uL (4.20-5.40); White Blood Cell (WBC) Count 7.7 thou/uL (4.8-10.8)
[2020-03-27] MEDS: Ferrous Sulfate 325 MG TAB PO SCH ×2 (08:30→21:27)
[2020-03-27] MEDS: Docusate Calcium (SURFAK) 240 MG CAP PO SCH ×2 (08:30→21:28)
[2020-03-27] MEDS: Labetalol 100 MG TAB PO SCH ×2 (08:30→21:27)
[2020-03-27] MEDS: Prenatal Vitamin 1 TAB PO SCH (08:30)
[2020-03-27] MEDS: HYDROcodone/Acetaminophen 5/325 mg Tablet PO PRN ×2 (16:26→19:54)
[2020-03-28] MEDS: HYDROcodone/Acetaminophen 5/325 mg Tablet PO PRN ×2 (05:20→12:19)
[2020-03-28] MEDS: Lactated Ringer's 1,000 ML IV SCH ×3 (05:21→12:28)
[2020-03-28] MEDS: Ibuprofen 800 MG TAB PO SCH ×2 (05:21→12:28)
--- NOTE | 2020-03-28 07:53 | PDOC.PP ---
Post Progress Note Post Day #: 2 Subjective: No PIH symptoms. Feels well. Vital Signs (12 hours) Pulse BP Pulse Ox 03/27/20 21:27 86 144/67 H 03/27/20 20:00 98 Result Diagrams: 03/27/20 05:59 03/26/20 06:18 Additional Labs: Post Labs Blood Type A POSITIVE 03/26/20 06:18 Hep Bs Antigen Non-Reactive S/CO (NonReactive) 03/26/20 06:18 - Assessment/Plan Post op day 2 from repeat c/s. Blood pressures remain less than severe range. labetolol 100 mg bid on board. Ready to go home. Will come in on April 01 for blood pressure check and wound check.
[2020-03-28] MEDS: Docusate Calcium (SURFAK) 240 MG CAP PO SCH (08:19)
[2020-03-28] MEDS: Labetalol 100 MG TAB PO SCH (08:19)
[2020-03-28] MEDS: Ferrous Sulfate 325 MG TAB PO SCH (08:19)
[2020-03-28] MEDS: Prenatal Vitamin 1 TAB PO SCH (08:19)
[2020-03-28 08:20] VITALS: TEMP 98
[2020-03-28 08:46] VITALS: BP 144/67
== END 2020-03-28 14:45 | disposition home or self-care (01) | DRG 788 ==
LOC: L&D-LIB 05:56 → L&D 09:24 → 3SW 11:46
PROVIDERS: ADMIT Obstetrics & Gynecology; ATTEND Obstetrics & Gynecology
PROC: 10D00Z1 Extraction of Products of Conception, Low, Open Approach (ICD-10-PCS; principal; 2020-03-26)
PROC: 3E0234Z Introduction of Serum, Toxoid and Vaccine into Muscle, Percutaneous Approach (ICD-10-PCS; 2020-03-26)
DX: O34.211 Maternal care for low transverse scar from previous cesarean delivery (principal); O99.52 Diseases of the respiratory system complicating childbirth; O14.94 Unspecified pre-eclampsia, complicating childbirth; J45.909 Unspecified asthma, uncomplicated; Z3A.38 38 weeks gestation of pregnancy; Z37.0 Single live birth; Z88.2 Allergy status to sulfonamides; Z23 Encounter for immunization
CPT/HCPCS: 36415; 51702; 80053; 80306; 84156; 85027; 86780; 86850; 86900; 86901; 87340; 90471; 90732; G0009; J0360; J1100; J1885; J2274; J2405; J2590; J3010